=== PATIENT | male | born 1985 | race Caucasian/White ===

== ENCOUNTER 2019-07-10 06:06 | Emergency (ER) | payer OTHER, SELFPAY ==
[2019-07-10 06:14] VITALS: BP 182/108; PULSE 91; RESP 12; TEMP 36.8; O2SAT 98; BMI 25.0
--- NOTE | 2019-07-10 06:14 | ED.GENADULT ---
HPI - General Adult General Chief complaint: Chest Pain Stated complaint: heart palpitations/chest pain Time Seen by Provider: 07/10/19 06:07 Source: patient Mode of arrival: Ambulatory Limitations: no limitations History of Present Illness HPI narrative: Patient is a 33-year-old male. Here for evaluation of chest pain and palpitations. Patient states that the symptoms started last evening. He stated that the majority of his symptoms were that his heart was racing. No shortness of breath. He was lying down at the time. No loss consciousness. No headache. He does admit to being an alcoholic and drinking on a daily basis. He also states that 2 days ago he took some prescription in an attempt to get high from them but denies any other street drugs. This still feeling the palpitations upon arrival. He states he is also concerned about his liver given his alcohol abuse Related Data Previous Rx's Medication Instructions Recorded escitalopram oxalate 10 mg tablet 10 mg PO DAILY #30 tab 09/10/18 ramelteon 8 mg tablet 8 mg PO BEDTIME PRN #30 tab 09/10/18 Allergies Allergy/AdvReac Type Severity Reaction Status Date / Time No Known Drug Allergies Allergy Unverified 09/10/18 15:43 Review of Systems Constitutional Constitutional: Denies fever(s) and Denies headache(s) ENT Ears, Nose, Mouth, and Throat: Denies headache(s) Cardiovascular Cardiovascular: Reports chest pain, Reports rapid heart rate, Denies lightheadedness, Reports palpitations and Denies dyspnea Respiratory Respiratory: Denies cough and Denies dyspnea Gastrointestinal Gastrointestinal: Denies abdominal pain, Denies nausea and Denies vomiting Musculoskeletal Musculoskeletal: Denies myalgias and Denies arthralgias Integumentary/Breasts Skin/Breast: Denies lesions and Denies rash Neurologic Neurologic: Denies behavioral changes and Denies headache(s) Psychiatric Psychiatric: Denies behavioral changes Endocrine Endocrine: Reports palpitations Hematologic/Lymphatic Hematologic/Lymphatic: Denies easy bleeding and Denies easy bruising Patient History Medical History Alcoholism (Acute) Anxiety (Inactive) Depression (Inactive) Prescription drug abuse (Acute) Social History Smoking Status: Never smoker second hand exposure: No alcohol intake: current substance use type: does not use Smoking Status: Never smoker Exam Initial Vital Signs Initial Vital Signs: Vital Signs Temperature 98.3 F 07/10/19 06:14 Pulse Rate 91 H 07/10/19 06:14 Respiratory Rate 12 07/10/19 06:14 Blood Pressure 182/108 H 07/10/19 06:14 Pulse Oximetry 98 07/10/19 06:14 Const General: cooperative, healthy appearing and comfortable [facility] Head: normal to inspection and normocephalic Resp Effort & Inspection: normal respiratory effort Auscultation: clear to auscultation bilaterally Cardio Rate: regular rate Rhythm: regular rhythm Pulses: radial pulses present GI Inspection: non-distended Palpation: soft Skin Lesions: no lesions Rashes: no rashes Neuro General: alert Cognition: normal cognition Extrem General: normal to inspection and capillary refill normal Psych Appearance: grossly normal and well kempt Course Orders Ordered: ED Orders 07/10/19 00:20 CBC Auto Diff [Complete Blood Count AUTO DIFF] Stat Comprehensive Metabolic Panel Stat Lipase Stat 07/10/19 06:15 EKG-12 Lead Stat Vital Signs Vital signs: Vital Signs - 8 hr 07/10/19 06:14 Temperature 98.3 F Pulse Rate 91 H Respiratory Rate 12 Blood Pressure 182/108 H Pulse Oximetry 98 Medical Decision Making Lab Data Lab results reviewed: Yes I reviewed the patient's lab results. Result diagrams: 07/10/19 00:20 07/10/19 00:20 Labs: Lab Results 07/10/19 07/10/19 Range/Units 00:20 00:20 WBC 8.4 (4.5-11.0) X10^3/uL RBC 4.83 (4.5-5.9) X10^6/uL Hgb 15.8 (13.5-17.5) g/dL Hct 44.3 (41-53) % MCV 91.7 (80-100) fL MCH 32.6 (26-34) PG MCHC 35.6 (30-36) % RDW 13.9 (11.6-14.8) % Plt Count 268 (150-400) X10^3/uL Neut % (Auto) 72.3 (50-75) % Lymph % (Auto) 15.5 L (25-40) % [place] % (Auto) 10.5 (3-14) % Eos % (Auto) 1.3 L (2-4) % Baso % (Auto) 0.4 (0-2) % Neut # (Auto) 6100 (0608-5234) /uL Lymph # (Auto) 1300 (9014-9605) /uL [place] # (Auto) 900 (0-900) /uL Eos # (Auto) 100 (0-450) /uL Baso # (Auto) 0 (0-100) /uL Sodium 137 (137-145) mmol/L Potassium 4.7 (3.4-5.1) mmol/L Chloride 97 L (98-107) mmol/L Carbon Dioxide 29 (22-32) mmol/L BUN 11 (9-20) mg/dL Creatinine 0.70 (0.66-1.25) mg/dL Estimated GFR > 60.0 (>60) mL/min BUN/Creatinine Ratio 15.7 (6-22) Glucose 118 H (70-100) mg/dL Calcium 10.5 H (8.4-10.2) mg/dL Total Bilirubin 1.5 H (0.2-1.3) mg/dL AST 257 H (17-59) IU/L ALT 338 H (<50) IU/L Alkaline Phosphatase 97 (38-126) U/L Total Protein 9.0 H (6.3-8.2) g/dL Albumin 5.6 H (3.5-5.0) g/dL Globulin 3.4 (1.7-4.1) g/dL Albumin/Globulin Ratio 1.6 (1.0-2.8) Lipase 150 (23-300) U/L ECG Data Attestation: I personally reviewed and interpreted this ECG as follows: Prior ECG tracings: not available for review Interpretation: Sinus rhythm Ventricular rate is 77 Normal axis Normal QRS Normal QTC No ST T wave changes MDM Narrative Medical decision making narrative: Patient's EKG is unremarkable. Electrolytes unremarkable. Does have a elevation in his LFTs. Lipase not consistent with pancreatitis. I do suspect that his elevation in his LFTs are secondary to his alcohol use. I did have a discussion with the patient regarding his alcohol use. I did inform him that his elevation in the liver function tests are most likely related to his drinking. I did offer him help with treatment of alcohol out of the emergency department. We did discuss that we could attempt to find him a facility for detox. The patient declined this offer. He stated that he wanted to talk with his parents in to check with their insurance. He was given resources and phone numbers he can call. Instructed he could return to the emergency depart for any new or worsening symptoms. Discharge Plan Departure Patient Disposition: Home Clinical Impression: Heart palpitations, Alcohol abuse, Elevated liver function tests Instructions: Alcohol Use Disorder Activity Restrictions/Additional Instructions: I recommend that you contact your primary provider for follow-up. No driving for the next 24 hours or in the future if you are drinking. You do have elevation in your liver function test. This is most likely related to your alcohol use. Recommend you contact the phone numbers that you were provided to help with detox if you desire. You can return to the emergency department at any point if needed. Prescriptions: No Action escitalopram oxalate 10 mg tablet 10 mg PO DAILY Qty: 30 RF: 0 Rozerem 8 mg tablet 8 mg PO BEDTIME PRN (Reason: sleep) Qty: 30 RF: 0
--- NOTE | 2019-07-10 06:22 | PC.NURSE ---
reports Irregular heartbeat states it felt like it wants to jump out of my chest. Patient states he didn't have any chestpain. states he has some chest pressure when laying flat but has since resolved.
[2019-07-10 06:35] LABS: Alanine Aminotransferase 338 IU/L (<50); Albumin 5.6 g/dL (3.5-5.0); Albumin Globulin Ratio 1.6 (1.0-2.8); Alkaline Phosphatase 97 U/L (38-126); Aspartate Aminotransferase 257 IU/L (17-59); BUN Creatinine Ratio 15.7 (6-22); Bilirubin Total 1.5 mg/dL (0.2-1.3); Blood Urea Nitrogen 11 mg/dL (9-20); Calcium 10.5 mg/dL (8.4-10.2); Carbon Dioxide 29 mmol/L (22-32); Chloride 97 mmol/L (98-107); Estimated Glomerular Filt Rate > 60.0 mL/min (>60); Globulin 3.4 g/dL (1.7-4.1); Glucose 118 mg/dL (70-100); HEMOLYSIS < 15 (0-50); Lipase 150 U/L (23-300); Potassium 4.7 mmol/L (3.4-5.1); Sodium 137 mmol/L (137-145)
[2019-07-10 06:41] LABS: Add Manual Diff / Slide Review NO; Basophils Absolute Auto 0 /uL (0-100); Basophils Percent Auto 0.4 % (0-2); Eosinophils Absolute Auto 100 /uL (0-450); Eosinophils Percent Auto 1.3 % (2-4); Hematocrit 44.3 % (41-53); Hemoglobin 15.8 g/dL (13.5-17.5); Lymphocytes Absolute Auto 1300 /uL (1100-4500); Lymphocytes Percent Auto 15.5 % (25-40); Mean Corpuscular HGB Conc 35.6 % (30-36); Mean Corpuscular Hemoglobin 32.6 PG (26-34); Mean Corpuscular Volume 91.7 fL (80-100); Monocytes Absolute Auto 900 /uL (0-900); Monocytes Percent Auto 10.5 % (3-14); Neutrophils Absolute Auto 6100 /uL (1500-7000); Neutrophils Percent Auto 72.3 % (50-75); Platelet Count 268 X10^3/uL (150-400); Red Blood Cell Count 4.83 X10^6/uL (4.5-5.9); Red Cell Distribution Width 13.9 % (11.6-14.8); White Blood Cell Count 8.4 X10^3/uL (4.5-11.0)
[2019-07-10 06:50] VITALS: BP 152/94; PULSE 75; RESP 14; O2SAT 97
== END 2019-07-10 07:07 | disposition home or self-care (01) ==
PROVIDERS: Emergency Provider Emergency Medicine
DX: R00.2 Palpitations (principal); F10.10 Alcohol abuse, uncomplicated; R94.5 Abnormal results of liver function studies
CPT/HCPCS: 36415; 80053; 83690; 85025; 93005; 99284

== ENCOUNTER → 2021-08-12 14:58 | Outpatient (CLI) | payer OTHER, SELFPAY ==
[2021-08-12 16:00] LABS: Add Manual Diff / Slide Review NO; Basophils Absolute Auto 100 /uL (0-100); Basophils Percent Auto 0.7 % (0-2); Eosinophils Absolute Auto 100 /uL (0-450); Eosinophils Percent Auto 1.6 % (2-4); Hematocrit 46.2 % (41-53); Hemoglobin 16.1 g/dL (13.5-17.5); Lymphocytes Absolute Auto 1500 /uL (1100-4500); Lymphocytes Percent Auto 19.1 % (25-40); Mean Corpuscular HGB Conc 34.8 % (30-36); Mean Corpuscular Hemoglobin 32.7 PG (26-34); Mean Corpuscular Volume 94.1 fL (80-100); Monocytes Absolute Auto 700 /uL (0-900); Monocytes Percent Auto 9.6 % (3-14); Neutrophils Absolute Auto 5300 /uL (1500-7000); Platelet Count 253 X10^3/uL (150-400); Red Blood Cell Count 4.91 X10^6/uL (4.5-5.9); White Blood Cell Count 7.6 X10^3/uL (4.5-11.0)
[2021-08-12 16:28] LABS: Alanine Aminotransferase 432 IU/L (<50); Albumin 5.5 g/dL (3.5-5.0); Albumin Globulin Ratio 1.5 (1.0-2.8); Alkaline Phosphatase 82 U/L (38-126); Aspartate Aminotransferase 329 IU/L (17-59); BUN Creatinine Ratio 8.8 (6-22); Bilirubin Total 1.3 mg/dL (0.2-1.3); Blood Urea Nitrogen 8 mg/dL (9-20); Calcium 10.6 mg/dL (8.4-10.2); Carbon Dioxide 24 mmol/L (22-32); Chloride 101 mmol/L (98-107); Estimated Glomerular Filt Rate > 60.0 mL/min (>60); Globulin 3.7 g/dL (1.7-4.1); Glucose 92 mg/dL (70-100); HEMOLYSIS < 15 (0-50); Potassium 4.1 mmol/L (3.4-5.1); Sodium 138 mmol/L (137-145); Total Protein 9.2 g/dL (6.3-8.2)
[2021-08-12 16:56] LABS: TSH w/ Reflex to FT4 0.99 uIU/mL (0.47-4.68)
== END ==
PROVIDERS: PCP Family Medicine; Referring Provider Family Medicine; Visit Provider Family Medicine
DX: F10.239 Alcohol dependence with withdrawal, unspecified (principal); R19.7 Diarrhea, unspecified; R25.1 Tremor, unspecified
CPT/HCPCS: 36415; 80053; 84443; 85025

== ENCOUNTER → 2021-08-24 10:41 | Outpatient (CLI) | payer OTHER, SELFPAY ==
[2021-08-24 12:05] LABS: Alanine Aminotransferase 338 IU/L (<50); Albumin 5.1 g/dL (3.5-5.0); Albumin Globulin Ratio 1.6 (1.0-2.8); Alkaline Phosphatase 59 U/L (38-126); Aspartate Aminotransferase 131 IU/L (17-59); BUN Creatinine Ratio 13.1 (6-22); Bilirubin Total 1.2 mg/dL (0.2-1.3); Blood Urea Nitrogen 13 mg/dL (9-20); Calcium 10.1 mg/dL (8.4-10.2); Carbon Dioxide 26 mmol/L (22-32); Chloride 104 mmol/L (98-107); Cholesterol 272 mg/dL (140-199); Estimated Glomerular Filt Rate > 60.0 mL/min (>60); Globulin 3.1 g/dL (1.7-4.1); Glucose 94 mg/dL (70-100); HDL Cholesterol 96 mg/dL (40-60); HEMOLYSIS 37 (0-50); LDL Cholesterol Calculated 158 mg/dL (<100); Potassium 4.8 mmol/L (3.4-5.1); Sodium 137 mmol/L (137-145); Total Protein 8.2 g/dL (6.3-8.2); Triglycerides 89 mg/dL (35-150)
== END ==
PROVIDERS: PCP Family Medicine; Referring Provider Family Medicine; Visit Provider Family Medicine
DX: I10 Essential (primary) hypertension (principal); F10.21 Alcohol dependence, in remission; F10.230 Alcohol dependence with withdrawal, uncomplicated
CPT/HCPCS: 36415; 80053; 80061

== ENCOUNTER → 2022-09-22 10:18 | Outpatient (CLI) | payer OTHER, SELFPAY ==
[2022-09-22 10:54] LABS: Add Manual Diff / Slide Review NO; Basophils Absolute Auto 0 /uL (0-100); Basophils Percent Auto 0.5 % (0-2); Eosinophils Absolute Auto 300 /uL (0-450); Eosinophils Percent Auto 4.6 % (2-4); Hematocrit 43.1 % (41-53); Hemoglobin 15.1 g/dL (13.5-17.5); Lymphocytes Absolute Auto 1700 /uL (1100-4500); Mean Corpuscular Hemoglobin 32.4 PG (26-34); Mean Corpuscular Volume 92.4 fL (80-100); Monocytes Absolute Auto 700 /uL (0-900); Monocytes Percent Auto 9.4 % (3-14); Neutrophils Absolute Auto 4300 /uL (1500-7000); Neutrophils Percent Auto 61.5 % (50-75); Platelet Count 231 X10^3/uL (150-400); Red Blood Cell Count 4.66 X10^6/uL (4.5-5.9); Red Cell Distribution Width 12.6 % (11.6-14.8); White Blood Cell Count 6.9 X10^3/uL (4.5-11.0)
[2022-09-22 11:12] LABS: Prothrombin Time 11.6 SECONDS (10.1-12.7)
[2022-09-22 11:37] LABS: Alanine Aminotransferase 132 IU/L (<50); Albumin 4.6 g/dL (3.5-5.0); Albumin Globulin Ratio 1.2 (1.0-2.8); Alkaline Phosphatase 80 U/L (38-126); Aspartate Aminotransferase 90 IU/L (17-59); BUN Creatinine Ratio 12.9 (6-22); Bilirubin Total 0.6 mg/dL (0.2-1.3); Bilirubin Unconjugated 0.2 mg/dL (0.0-1.1); Blood Urea Nitrogen 13 mg/dL (9-20); Calcium 9.8 mg/dL (8.4-10.2); Carbon Dioxide 27 mmol/L (22-32); Chloride 101 mmol/L (98-107); Estimated Glomerular Filt Rate > 60 mL/min (>60); Globulin 3.8 g/dL (1.7-4.1); Glucose 115 mg/dL (70-100); HEMOLYSIS < 15 (0-50); Potassium 4.3 mmol/L (3.4-5.1); Sodium 137 mmol/L (137-145); Total Protein 8.4 g/dL (6.3-8.2)
[2022-09-22 17:17] LABS: Free T4, Direct Thyroxine 0.91 ng/dL (0.78-2.19)
[2022-09-22 17:31] LABS: Thyroid Stimulating Hormone 1.31 uIU/mL (0.47-4.68)
[2022-09-22 21:23] LABS: Hepatitis B Surface Antigen NEGATIVE s/c (NEGATIVE)
[2022-09-22 21:41] LABS: HIV 1 & 2 Ab/Ag 4th Gen Combo NEGATIVE (NEGATIVE); Hep C Virus Ab w/Reflex Quant NEGATIVE s/c (NEGATIVE)
[2022-09-23 03:41] LABS: Hepatitis A Ab Total Negative (Negative); Hepatitis B Core AB w/Reflex Negative (Negative); Hepatitis B Surf AB Quant 56.5 mIU/mL (Immunity>9.9)
== END ==
PROVIDERS: PCP Registered Nurse; Referring Provider Registered Nurse; Visit Provider Registered Nurse
DX: F10.21 Alcohol dependence, in remission (principal)
CPT/HCPCS: 36415; 80048; 80076; 80307; 84439; 84443; 85025; 85610; 86704; 86706; 86708; 86803; 87340; 87389

== ENCOUNTER → 2022-10-15 14:12 | Outpatient (CLI) | payer OTHER, SELFPAY | PROVIDERS: PCP Registered Nurse; Visit Provider Nurse Practitioner Family | DX: L02.91 Cutaneous abscess, unspecified (principal) | CPT/HCPCS: 87070; 87075; 87077; 87147; 87186; 87205 ==

== ENCOUNTER 2022-11-20 17:48 | Emergency (ER) | payer OTHER, SELFPAY ==
[2022-11-20 17:53] VITALS: BP 151/106; PULSE 115; RESP 18; TEMP 36.6; O2SAT 97
[2022-11-20 18:12] VITALS: BMI 24.3
[2022-11-20 18:30] LABS: Add Manual Diff / Slide Review NO; Basophils Absolute Auto 100 /uL (0-100); Basophils Percent Auto 0.5 % (0-2); Eosinophils Absolute Auto 100 /uL (0-450); Eosinophils Percent Auto 0.9 % (2-4); Hematocrit 42.2 % (41-53); Hemoglobin 14.7 g/dL (13.5-17.5); Lymphocytes Absolute Auto 2900 /uL (1100-4500); Lymphocytes Percent Auto 20.7 % (25-40); Mean Corpuscular HGB Conc 34.9 % (30-36); Mean Corpuscular Hemoglobin 31.9 PG (26-34); Mean Corpuscular Volume 91.3 fL (80-100); Monocytes Absolute Auto 900 /uL (0-900); Monocytes Percent Auto 6.2 % (3-14); Neutrophils Absolute Auto 10200 /uL (1500-7000); Neutrophils Percent Auto 71.7 % (50-75); Platelet Count 306 X10^3/uL (150-400); Red Blood Cell Count 4.62 X10^6/uL (4.5-5.9); Red Cell Distribution Width 14.1 % (11.6-14.8); White Blood Cell Count 14.2 X10^3/uL (4.5-11.0)
[2022-11-20 18:35] LABS: Ur Creatinine Normal (Normal); Ur Specific Gravity Normal (Normal); Urine Amphetamines Negative (Negative); Urine Barbiturates Negative (Negative); Urine Benzodiazepines Negative (Negative); Urine Cocaine Negative (Negative); Urine MDMA Negative (Negative); Urine Methadone Negative (Negative); Urine Methamphetamines Negative (Negative); Urine Opiates Negative (Negative); Urine Oxycodone Negative (Negative); Urine Phencyclidine Negative (Negative); Urine THC Negative (Negative); Urine Tricyclic Antidepressant Negative (Negative); Urine pH Normal (Normal)
[2022-11-20 18:38] LABS: Acetaminophen < 10 ug/mL (10-30); Alanine Aminotransferase 57 IU/L (<50); Albumin 4.5 g/dL (3.5-5.0); Albumin Globulin Ratio 1.4 (1.0-2.8); Alkaline Phosphatase 108 U/L (38-126); Aspartate Aminotransferase 39 IU/L (17-59); BUN Creatinine Ratio 10.5 (6-22); Bilirubin Total 0.4 mg/dL (0.2-1.3); Blood Urea Nitrogen 8 mg/dL (9-20); Calcium 8.7 mg/dL (8.4-10.2); Carbon Dioxide 23 mmol/L (22-32); Chloride 101 mmol/L (98-107); Estimated Glomerular Filt Rate > 60 mL/min (>60); Globulin 3.3 g/dL (1.7-4.1); Glucose 96 mg/dL (70-100); Potassium 4.2 mmol/L (3.4-5.1); Salicylate < 1.0 mg/dL (<20); Sodium 137 mmol/L (137-145); Total Protein 7.8 g/dL (6.3-8.2)
[2022-11-20 18:46] LABS: Ethanol (ETOH) 397 mg/dL; HEMOLYSIS 20 (0-50)
--- NOTE | 2022-11-20 18:52 | ED.PSYCH ---
HPI - Psych <Gino Monroe DO - Last Filed: 11/21/22 18:02> General Chief Complaint: Psychiatric Symptoms Stated Complaint: Psych Time Seen by Provider: 11/20/22 18:01 Source: patient and family Mode of arrival: EMS Limitations: no limitations History of Present Illness HPI Narrative: Patient is a 37-year-old male who is brought in by EMS for evaluation of suicidal ideation and alcohol intoxication. He has a history of alcohol abuse. Also has a history of depression. He is on medications for these. He does drink on a regular basis. He does live at home with his parents. His parents state that over the past couple weeks he has not been getting up and doing much other than going to the bathroom and getting something to eat. He was supposed to go to a job today but did not get up to leave the house. Patient states that he has been drinking alcohol. He states his last drink was this morning. Throughout the day today apparently he has been having suicidal thoughts. He would not specifically tell me exactly what these thoughts were. He was on the phone talking with a counselor that he talks to on a fairly regular basis. He is reported that he mentioned these suicidal thoughts to the counselor who then talked with the patient's mother. EMS was contacted. Here in the emergency department the patient denies any suicidal ideation. He does admit that the thoughts do come and go. He is also been having some abdominal discomfort over the past couple weeks. He states he feels like his abdomen is distended. He has been having some diarrhea and some dark colored stools. No vomiting. Related Data Previous Rx's Medication Instructions Recorded acamprosate 333 mg tablet,delayed 333 mg PO TID #90 tabs 10/23/22 release buspirone 5 mg tablet 5 mg PO BID PRN anxiety #60 tabs 10/23/22 hydroxyzine pamoate 25 mg capsule 25 mg PO BID PRN anxiety #60 caps 10/23/22 chlordiazepoxide HCl 25 mg capsule 25 mg PO BID PRN alcohol 11/21/22 withdrawal #32 caps Allergies Allergy/AdvReac Type Severity Reaction Status Date / Time Opioids - Morphine Analogues AdvReac Severe Nausea Verified 11/20/22 17:56 Review of Systems <DO Jana Smalls Last Filed: 11/21/22 18:02> Constitutional Constitutional: Reports system reviewed and no additional complaints, except as documented Respiratory Respiratory: Reports system reviewed and no additional complaints, except as documented Gastrointestinal Gastrointestinal: Reports system reviewed and no additional complaints, except as documented Integumentary/Breasts Skin/Breast: Reports system reviewed and no additional complaints, except as documented Neurologic Neurologic: Reports system reviewed and no additional complaints, except as documented Psychiatric Psychiatric: Reports system reviewed and no additional complaints, except as documented Patient History <Gino Monroe DO - Last Filed: 11/21/22 18:02> Medical History Alcohol use disorder, moderate, in early remission, in controlled environment, dependence Alcoholism Anxiety Depression Diarrhea Hyperglycemia Hyperlipidemia Prescription drug abuse Social History Smoking Status: Never smoker second hand exposure: No alcohol intake: current substance use type: does not use Smoking Status: Never smoker alcohol intake frequency: 3 or more drinks per day Alcohol type: beer and wine Substance Use Type: does not use and prescription drug Exam <Gino Monroe DO - Last Filed: 11/21/22 18:02> Initial Vital Signs Initial Vital Signs: Vital Signs Temperature 97.8 F 11/20/22 17:53 Pulse Rate 115 H 11/20/22 17:53 Respiratory Rate 18 11/20/22 17:53 Blood Pressure 151/106 H 11/20/22 17:53 Pulse Oximetry 97 11/20/22 17:53 Oxygen Delivery Method Room Air 11/20/22 17:53 Const General: cooperative, healthy appearing and No ill appearing HENMT Head: normal to inspection and normocephalic Resp Effort & Inspection: normal respiratory effort Auscultation: clear to auscultation bilaterally Cardio Rate: regular rate Rhythm: regular rhythm GI Inspection: normal to inspection Palpation: soft, No firm and No tender Skin General: no rashes or lesions noted Neuro General: patient alert, patient awake and moves all extremities Extrem General: capillary refill normal Psych Appearance: grossly normal Speech and Movement: speech and movement normal Mood: congruent mood Affect: normal affect Attitude: cooperative <Leonard Redmond DO - Last Filed: 11/21/22 08:31> Initial Vital Signs Initial Vital Signs: Vital Signs Temperature 97.8 F 11/20/22 17:53 Pulse Rate 115 H 11/20/22 17:53 Respiratory Rate 18 11/20/22 17:53 Blood Pressure 151/106 H 11/20/22 17:53 Pulse Oximetry 97 11/20/22 17:53 Oxygen Delivery Method Room Air 11/20/22 17:53 Course <Gino Monroe DO - Last Filed: 11/21/22 18:02> Orders Ordered: Discontinued Medications Lorazepam (Lorazepam 0.5 Mg Tablet) 1 mg PO NOW ONE Stop: 11/21/22 08:20 Last Admin: 11/21/22 08:25 Dose: 1 mg Documented By: RB Vital Signs Vital signs: Vital Signs - 8 hr 11/20/22 17:53 Temperature 97.8 F Pulse Rate 115 H Respiratory Rate 18 Blood Pressure 151/106 H Pulse Oximetry 97 Oxygen Delivery Method Room Air <Leonard Redmond DO - Last Filed: 11/21/22 08:31> Orders Ordered: Discontinued Medications Lorazepam (Lorazepam 0.5 Mg Tablet) 1 mg PO NOW ONE Stop: 11/21/22 08:20 Last Admin: 11/21/22 08:25 Dose: 1 mg Documented By: RB Vital Signs Vital signs: Vital Signs - 8 hr 11/20/22 17:53 Temperature 97.8 F Pulse Rate 115 H Respiratory Rate 18 Blood Pressure 151/106 H Pulse Oximetry 97 Oxygen Delivery Method Room Air MDM - Psych <Gino Monroe DO - Last Filed: 11/21/22 18:02> Lab Data Attestation: I reviewed the patient's lab results. 11/20/22 18:18 11/20/22 18:18 Labs: Lab Results 11/20/22 11/20/22 11/20/22 Range/Units 18:00 18:18 18:18 WBC 14.2 H (4.5-11.0) X10^3/uL RBC 4.62 (4.5-5.9) X10^6/uL Hgb 14.7 (13.5-17.5) g/dL Hct 42.2 (41-53) % MCV 91.3 (80-100) fL MCH 31.9 (26-34) PG MCHC 34.9 (30-36) % RDW 14.1 (11.6-14.8) % Plt Count 306 (150-400) X10^3/uL Neut % (Auto) 71.7 (50-75) % Lymph % (Auto) 20.7 L (25-40) % Dickenson % (Auto) 6.2 (3-14) % Eos % (Auto) 0.9 L (2-4) % Baso % (Auto) 0.5 (0-2) % Neut # (Auto) 57414 H (0940-3635) /uL Lymph # (Auto) 2900 (9593-4953) /uL Dickenson # (Auto) 900 (0-900) /uL Eos # (Auto) 100 (0-450) /uL Baso # (Auto) 100 (0-100) /uL Sodium 137 (137-145) mmol/L Potassium 4.2 (3.4-5.1) mmol/L Chloride 101 (98-107) mmol/L Carbon Dioxide 23 (22-32) mmol/L BUN 8 L (9-20) mg/dL Creatinine 0.76 (0.66-1.25) mg/dL Estimated GFR > 60 (>60) mL/min BUN/Creatinine Ratio 10.5 (6-22) Glucose 96 (70-100) mg/dL Calcium 8.7 (8.4-10.2) mg/dL Total Bilirubin 0.4 (0.2-1.3) mg/dL AST 39 (17-59) IU/L ALT 57 H (<50) IU/L Alkaline Phosphatase 108 (38-126) U/L Total Protein 7.8 (6.3-8.2) g/dL Albumin 4.5 (3.5-5.0) g/dL Globulin 3.3 (1.7-4.1) g/dL Albumin/Globulin Ratio 1.4 (1.0-2.8) Lipase (23-300) U/L TSH (0.47-4.68) uIU/mL Free T4 (0.78-2.19) ng/dL Salicylates < 1.0 (<20) mg/dL U Opiates 300ng/mL cut Negative (Negative) Ur Oxycodone Screen Negative (Negative) Urine Methadone Screen Negative (Negative) Acetaminophen < 10 (10-30) ug/mL Ur Barbiturates Screen Negative (Negative) U Tricyclic Antidepress Negative (Negative) Ur Phencyclidine Scrn Negative (Negative) Ur Amphetamines Screen Negative (Negative) U Methamphetamines Scrn Negative (Negative) Ur MDMA Scrn (Ecstasy) Negative (Negative) U Benzodiazepines Scrn Negative (Negative) Urine Cocaine Screen Negative (Negative) U Marijuana (THC) Screen Negative (Negative) Ethyl Alcohol 397 H ( - 10) mg/dL 11/20/22 11/20/22 Range/Units 18:18 18:18 WBC (4.5-11.0) X10^3/uL RBC (4.5-5.9) X10^6/uL Hgb (13.5-17.5) g/dL Hct (41-53) % MCV (80-100) fL MCH (26-34) PG MCHC (30-36) % RDW (11.6-14.8) % Plt Count (150-400) X10^3/uL Neut % (Auto) (50-75) % Lymph % (Auto) (25-40) % Dickenson % (Auto) (3-14) % Eos % (Auto) (2-4) % Baso % (Auto) (0-2) % Neut # (Auto) (3307-2702) /uL Lymph # (Auto) (2614-5092) /uL Dickenson # (Auto) (0-900) /uL Eos # (Auto) (0-450) /uL Baso # (Auto) (0-100) /uL Sodium (137-145) mmol/L Potassium (3.4-5.1) mmol/L Chloride (98-107) mmol/L Carbon Dioxide (22-32) mmol/L BUN (9-20) mg/dL Creatinine (0.66-1.25) mg/dL Estimated GFR (>60) mL/min BUN/Creatinine Ratio (6-22) Glucose (70-100) mg/dL Calcium (8.4-10.2) mg/dL Total Bilirubin (0.2-1.3) mg/dL AST (17-59) IU/L ALT (<50) IU/L Alkaline Phosphatase (38-126) U/L Total Protein (6.3-8.2) g/dL Albumin (3.5-5.0) g/dL Globulin (1.7-4.1) g/dL Albumin/Globulin Ratio (1.0-2.8) Lipase 87 (23-300) U/L TSH 0.696 (0.47-4.68) uIU/mL Free T4 1.16 (0.78-2.19) ng/dL Salicylates (<20) mg/dL U Opiates 300ng/mL cut (Negative) Ur Oxycodone Screen (Negative) Urine Methadone Screen (Negative) Acetaminophen (10-30) ug/mL Ur Barbiturates Screen (Negative) U Tricyclic Antidepress (Negative) Ur Phencyclidine Scrn (Negative) Ur Amphetamines Screen (Negative) U Methamphetamines Scrn (Negative) Ur MDMA Scrn (Ecstasy) (Negative) U Benzodiazepines Scrn (Negative) Urine Cocaine Screen (Negative) U Marijuana (THC) Screen (Negative) Ethyl Alcohol ( - 10) mg/dL Urine Dip Bedside Urine Glucose Negative Bedside Urine Bilirubin - Negative Bedside Urine Ketone - Negative Urine Specific [place] 1.020 Bedside Urine Occult Blood - Negative Bedside Urine pH 6.0 Bedside Urine Protein - Negative Bedside Urine Urobilinogen - Negative Bedside Urine Nitrite - Negative Bedside Urine Leukocytes - Negative Esterase MDM Narrative Medical decision making narrative: Patient has a benign abdominal exam. His labs are unremarkable. I suspect that his symptoms are most likely gastritis related to his alcohol use. There was no indication for any radiologic studies. Patient was alert and oriented but did smell of alcohol. His alcohol level is significantly elevated. Here in the emergency department he denied any suicidal ideation. He did admit that he did have some thoughts earlier in the day. Initially he was reluctant to stay here in the emergency department however after further convincing by his parents here in the emergency department he did agree to stay overnight. We will re-evaluate once he becomes clinically sober. Care turned over to Dr. Redmond to follow-up and disposition <Leonard Redmond, DO - Last Filed: 11/21/22 08:31> Lab Data Labs: Lab Results 11/20/22 11/20/22 11/20/22 Range/Units 18:00 18:18 18:18 WBC 14.2 H (4.5-11.0) X10^3/uL RBC 4.62 (4.5-5.9) X10^6/uL Hgb 14.7 (13.5-17.5) g/dL Hct 42.2 (41-53) % MCV 91.3 (80-100) fL MCH 31.9 (26-34) PG MCHC 34.9 (30-36) % RDW 14.1 (11.6-14.8) % Plt Count 306 (150-400) X10^3/uL Neut % (Auto) 71.7 (50-75) % Lymph % (Auto) 20.7 L (25-40) % Dickenson % (Auto) 6.2 (3-14) % Eos % (Auto) 0.9 L (2-4) % Baso % (Auto) 0.5 (0-2) % Neut # (Auto) 10016 H (9727-1524) /uL Lymph # (Auto) 2900 (8916-1505) /uL Dickenson # (Auto) 900 (0-900) /uL Eos # (Auto) 100 (0-450) /uL Baso # (Auto) 100 (0-100) /uL Sodium 137 (137-145) mmol/L Potassium 4.2 (3.4-5.1) mmol/L Chloride 101 (98-107) mmol/L Carbon Dioxide 23 (22-32) mmol/L BUN 8 L (9-20) mg/dL Creatinine 0.76 (0.66-1.25) mg/dL Estimated GFR > 60 (>60) mL/min BUN/Creatinine Ratio 10.5 (6-22) Glucose 96 (70-100) mg/dL Calcium 8.7 (8.4-10.2) mg/dL Total Bilirubin 0.4 (0.2-1.3) mg/dL AST 39 (17-59) IU/L ALT 57 H (<50) IU/L Alkaline Phosphatase 108 (38-126) U/L Total Protein 7.8 (6.3-8.2) g/dL Albumin 4.5 (3.5-5.0) g/dL Globulin 3.3 (1.7-4.1) g/dL Albumin/Globulin Ratio 1.4 (1.0-2.8) Lipase (23-300) U/L TSH (0.47-4.68) uIU/mL Free T4 (0.78-2.19) ng/dL Salicylates < 1.0 (<20) mg/dL U Opiates 300ng/mL cut Negative (Negative) Ur Oxycodone Screen Negative (Negative) Urine Methadone Screen Negative (Negative) Acetaminophen < 10 (10-30) ug/mL Ur Barbiturates Screen Negative (Negative) U Tricyclic Antidepress Negative (Negative) Ur Phencyclidine Scrn Negative (Negative) Ur Amphetamines Screen Negative (Negative) U Methamphetamines Scrn Negative (Negative) Ur MDMA Scrn (Ecstasy) Negative (Negative) U Benzodiazepines Scrn Negative (Negative) Urine Cocaine Screen Negative (Negative) U Marijuana (THC) Screen Negative (Negative) Ethyl Alcohol 397 H ( - 10) mg/dL 11/20/22 11/20/22 Range/Units 18:18 18:18 WBC (4.5-11.0) X10^3/uL RBC (4.5-5.9) X10^6/uL Hgb (13.5-17.5) g/dL Hct (41-53) % MCV (80-100) fL MCH (26-34) PG MCHC (30-36) % RDW (11.6-14.8) % Plt Count (150-400) X10^3/uL Neut % (Auto) (50-75) % Lymph % (Auto) (25-40) % Dickenson % (Auto) (3-14) % Eos % (Auto) (2-4) % Baso % (Auto) (0-2) % Neut # (Auto) (7809-1558) /uL Lymph # (Auto) (6865-0831) /uL Dickenson # (Auto) (0-900) /uL Eos # (Auto) (0-450) /uL Baso # (Auto) (0-100) /uL Sodium (137-145) mmol/L Potassium (3.4-5.1) mmol/L Chloride (98-107) mmol/L Carbon Dioxide (22-32) mmol/L BUN (9-20) mg/dL Creatinine (0.66-1.25) mg/dL Estimated GFR (>60) mL/min BUN/Creatinine Ratio (6-22) Glucose (70-100) mg/dL Calcium (8.4-10.2) mg/dL Total Bilirubin (0.2-1.3) mg/dL AST (17-59) IU/L ALT (<50) IU/L Alkaline Phosphatase (38-126) U/L Total Protein (6.3-8.2) g/dL Albumin (3.5-5.0) g/dL Globulin (1.7-4.1) g/dL Albumin/Globulin Ratio (1.0-2.8) Lipase 87 (23-300) U/L TSH 0.696 (0.47-4.68) uIU/mL Free T4 1.16 (0.78-2.19) ng/dL Salicylates (<20) mg/dL U Opiates 300ng/mL cut (Negative) Ur Oxycodone Screen (Negative) Urine Methadone Screen (Negative) Acetaminophen (10-30) ug/mL Ur Barbiturates Screen (Negative) U Tricyclic Antidepress (Negative) Ur Phencyclidine Scrn (Negative) Ur Amphetamines Screen (Negative) U Methamphetamines Scrn (Negative) Ur MDMA Scrn (Ecstasy) (Negative) U Benzodiazepines Scrn (Negative) Urine Cocaine Screen (Negative) U Marijuana (THC) Screen (Negative) Ethyl Alcohol ( - 10) mg/dL Urine Dip Bedside Urine Glucose Negative Bedside Urine Bilirubin - Negative Bedside Urine Ketone - Negative Urine Specific [place] 1.020 Bedside Urine Occult Blood - Negative Bedside Urine pH 6.0 Bedside Urine Protein - Negative Bedside Urine Urobilinogen - Negative Bedside Urine Nitrite - Negative Bedside Urine Leukocytes - Negative Esterase MDM Narrative Medical decision making narrative: Patient has a benign abdominal exam. His labs are unremarkable. I suspect that his symptoms are most likely gastritis related to his alcohol use. There was no indication for any radiologic studies. Patient was alert and oriented but did smell of alcohol. His alcohol level is significantly elevated. Here in the emergency department he denied any suicidal ideation. He did admit that he did have some thoughts earlier in the day. Initially he was reluctant to stay here in the emergency department however after further convincing by his parents here in the emergency department he did agree to stay overnight. We will re-evaluate once he becomes clinically sober. Care turned over to Dr. Redmond to follow-up and disposition [0700] (Ruy) Patient received in sign out from [Mabel]. I have reviewed the clinical course and performed an independent history and physical exam. Patient is awake, alert and oriented, speaking clearly and able to walk a straight line. He demonstrates capacity to make his own decisions. He is not feeling suicidal or homicidal. He wishes to leave. We did discuss the potential for him to enter into alcohol withdrawal, he does feel a little bit anxious and is therefore given Ativan here. He has experienced success with Librium tapers at home in the past. I spent a significant amount of time discussing with him return precautions including recurrence of suicidal or homicidal ideations, also any indication that his withdrawals are ramping up or not being treated by the Librium including increased agitation, tremors, vomiting, certainly any seizure activity. I asked if he would like to wait for the return of social Work to pursue placement for alcohol any says that he is not interested at this time. Discharge Plan Departure Patient Disposition: Home Clinical Impression: Alcohol abuse Instructions: Alcohol Use Disorder Activity Restrictions/Additional Instructions: *You have been diagnosed with [alcohol use disorder and suicidal comments. *What to do: *Please continue to take your regular medications as directed. [x ] New medication prescriptions sent to your pharmacy: [[facility] [ ] New medication written as a paper prescription [ ] No new medications given *Please follow up with your primary care provider in 2-3 days, call for an appointment. Let them know you were seen in the Emergency Department and that we ask that you be seen in follow up. We will electronically transmit a record of today's note if your PCP is in our system *Return to Emergency Department if you should have any recurrence of suicidal thoughts. Additionally, as we discussed any chest pain, shortness of breath, persistent vomiting, tremors or agitation that are not controlled by the prescription we gave you or any other concerns Prescriptions: New chlordiazepoxide HCl 25 mg capsule 25 mg PO BID PRN (Reason: alcohol withdrawal) Qty: 32 0RF Rx Instructions: Day 1: 50mg POq4 Day 2: 50mg POq6 Day 3: 50mg POq8 Day 4: 50mg POq12 Day 5: 50mg POqhs #32 No Action buspirone 5 mg tablet 5 mg PO BID PRN (Reason: anxiety) Qty: 60 2RF acamprosate 333 mg tablet,delayed release (DR/EC) 333 mg PO TID Qty: 90 1RF hydroxyzine pamoate 25 mg capsule 25 mg PO BID PRN (Reason: anxiety) Qty: 60 1RF Referrals: Joey Robledo, [Primary Care Provider] - Stand Alone Forms: Patient Portal/API
[2022-11-20 19:08] LABS: Lipase 87 U/L (23-300)
[2022-11-20 19:16] LABS: Free T4, Direct Thyroxine 1.16 ng/dL (0.78-2.19)
[2022-11-20 19:30] LABS: Thyroid Stimulating Hormone 0.696 uIU/mL (0.47-4.68)
--- NOTE | 2022-11-20 20:12 | CM.SWNOTE ---
COMPRESSED GAS EQUIPMENT MECHANIC Assessment COMPRESSED GAS EQUIPMENT MECHANIC - Chemical Treatment Operator Assessment COMPRESSED GAS EQUIPMENT MECHANIC/Chemical Treatment Operator Assessment Time Spent with Patient Start date 11/20/22 Visit Start Time 18:10 End date 11/20/22 Visit End Time 18:30 Total time Care Management spent on 20 minutes patient visit-in minutes Mental Health Screening Include Onset, Duration, Intensity Presenting Problem Patient presents to ED via EMS after his MANJINDER counselor called 911 due to concern for patient's depression and SI. Patient endorses crazy depression and states he spoke with his counselor earlier who recommended patient present to ED. Counselor states via phone that patient would not come to ED voluntarily and he felt the need to call 911. Precipitating Event(s) Per patient, patient's parents and patient's counselor it is reported that patient has not been sleeping well, has not been out of his bed much or out of the house. Patient endorses that he was supposed to catch a plane to go to [place] to start work today but he was not able to do so. Patient endorses he relapsed and started drinking last week but prior to that he was sober for more than a month. Patient Strengths Patient has supportive parents , supportive MANJINDER counselor and access to outpatient. Current Behavioral Health Provider(s) Patient meets with Addiction & Include Facility, Provider, Ph. # Substance Abuse Counselor in [place], [place] (Ph. # ). Patient reports he has been talking with counselor via phone a few times a week the last few weeks. Patient endorses he engages in [facility] as well but has not been engaging in recent weeks. Psych. Hx Mental Health and Chemical Patient has hx of Depression, Dependency Anxiety, SI, and ETOH abuse. Patient endorses he drank wine today this morning and he does not recall how much. Patient denies use of any other substances. Family Hx of Behavioral Abuse None reported Psychiatric Hospitalizations (date(s)/ No hx. Patient and patient's location) parents endorses patient's hx of going to rehab on two occasions. Psychosocial information & Support Patient is 37 y/o male who is Systems currently residing with his parents and has been since June 2022. Patient has supportive parents , per parents, patient has lost a lot of friends in recent years due to his ETOH use and addiction. 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 Patient endorses he also works in [employer]. Substance Abuse Screening Include Onset, Duration, Intensity Presenting Problem Patient has a BAL level of 397 Rehab Facilities? ((Date(s), Location(s) Patient has hx of going to ) acute rehab in [place] at least two years ago on at least two occasions. Legal Concerns Legal Matters - Outstanding Issues None reported Mental Status Orientation (Person/Place/Time) A/Ox4 Stated Mood crazy depression Affect (Congruent with Mood?) depressed, euthymic at times, tearful when speaking with his counselor via phone, congruent with mood, full range. Thought Content - Specify/Describe None reported from patient. Obsessions, Delusions, Hallucinations Patient's parents endorse that patient was just having visual hallucinations of seeing his phone. Thought Processes ([place]-Lfrqcnlb-Hblf coherent Zoydyzbd-Kbobzuma-Djxhfhpmko- Hrfkoyiaehinzg-Dxljgqc-Hepgrhkxlpvo- Thought Blocking) Speech (Ohwusj-Htyc-Macexbq-Rapid-Soft- normal/soft Loud-Pressured) Motor (Ywroui-Gbijxhhie-Mxom-Other) normal Insight (Gfnb-Azvp-Ekid/Limited) fair/limited Judgement (Cqcc-Pebh-Zfvk/Limited) fair/limited Impulse Control (Adequate-Impaired) adequate Memory (Jstqhdihz-Yfdbuf-Drshhq, intact, not formally assessed Impaired-Intact) Concentration (Intact-Impaired) intact Attention (Intact-Impaired) intact Behavior (Appropriate-Inappropriate) appropriate Additional Comment Patient presents as calm and communicative. Risk Assessment Suicidal Ideation (Plan) No Homicidal Ideation (Plan) No Comment Patient denies HI. Patient denies SI or self harm . Patient endorses depression and inability to get out of bed for days. With patient's permission, COMPRESSED GAS EQUIPMENT MECHANIC speaks with patient's parents and counselor. Patient's parents endorses patient has made statements that the only reason he is still around is because of them. Patient's counselor endorses concern for patient being high risk and stating that patient has disclosed SI in recent days, multiple times a day and has stated that he wants his parents to leave but has not disclosed specific ways and means regarding SI. Intervention Intervention COMPRESSED GAS EQUIPMENT MECHANIC enters room to meet with patient. Patient endorses concern for depression and ETOH abuse. Patient endorses lack of sleep , no motivation to get up and do daily activities and missing work today. Patient denies SI, HI and thoughts of self harm. Patient endorses he did not know why his counselor wanted him to come to the ED and he doesn't recall endorsing SI. Patient presents with BAL of 397 and states his last drink was wine this morning but he doesn't recall how much he drank. After speaking with patient's parents and counselor with patient's consent they have concern for patient's MH and MANJINDER due to recent weeks of patient's decline. Counselor reports that parents are looking into getting patient into [facility] in [place], [place] to address dual dx. Patient requests to leave and does not want to stay in ED and does not want to seek placement to address detox, MH or rehab. It is the opinion of this COMPRESSED GAS EQUIPMENT MECHANIC that patient would benefit from and be appropriate for dual dx inpatient placement to address depression and ETOH abuse. Although patient is not voluntary and not interested in seeking this at this time with preference of discharging to home. COMPRESSED GAS EQUIPMENT MECHANIC reviews the above with ED provider, ED provider indicates agreement and understanding and endorses to patient and parents recommendation for patient to stay overnight for observation and to re-assess patient in the morning when patient is sober. Plan RA Plan Patient to board in ED overnight for observation or patient to d/c by choice by foot. Parents likely to stay in ED with patient to ensure patient remains in ED. CAMILLA MéndezSW
--- NOTE | 2022-11-20 23:34 | PC.NURSE ---
Parents of patient left a while ago and patient has settled down in the room and has been sleeping since parents left. No signs of alcohol withdraw at this time.
--- NOTE | 2022-11-21 04:44 | PC.NURSE ---
Patient becoming restless in the room....walking around going from the bed to the chair and back to the bed
[2022-11-21] MEDS: LORazepam 0.5 MG TABLET 1 MG PO (08:25)
[2022-11-21 08:33] VITALS: BP 128/80; PULSE 87; RESP 16; TEMP 36.6; O2SAT 98
== END 2022-11-21 08:34 | disposition home or self-care (01) ==
PROVIDERS: Emergency Medicine; Emergency Provider Emergency Medicine; PCP Family Medicine
DX: F10.129 Alcohol abuse with intoxication, unspecified (principal); Y90.8 Blood alcohol level of 240 mg/100 ml or more
CPT/HCPCS: 36415; 80053; 80305; 80320; 80329; 81003; 83690; 84439; 84443; 85025; 99284; G0480